=== PATIENT | male | born 1985 | race Caucasian/White ===

== ENCOUNTER 2022-09-20 09:25 | Emergency (ER) | payer OTHER, SELFPAY ==
[2022-09-20 09:28] VITALS: BP 186/112; PULSE 83; RESP 16; TEMP 36.4; O2SAT 100
--- NOTE | 2022-09-20 09:34 | ED.GENADULT ---
HPI - General Adult General Chief complaint: Wound/Laceration <Jose Encarnacion MD - Last Filed: 09/20/22 18:14> Stated complaint: hand lac <Jose Encarnacion MD - Last Filed: 09/20/22 18:14> Time Seen by Provider: 09/20/22 09:28 <Jose Encarnacion MD - Last Filed: 09/20/22 18:14> History of Present Illness HPI narrative: 27-year-old male presented to the emergency department for evaluation of an injury to his left hand. Patient reports last night at approximately 4 PM he was cutting deer sausage with a knife and inadvertently cut his left hand. Patient states he did attempt to put Steri-Strips on the wound but when he was at work today it continued to bleed. Patient reports that his tetanus is up-to-date. Patient denies any associate numbness or weakness. <Jose Encarnacion MD - Last Filed: 09/20/22 18:14> Related Data Allergies/adverse reactions: Allergies Allergy/AdvReac Type Severity Reaction Status Date / Time No Known Allergies Allergy Unverified 05/23/13 12:30 <Jose Encarnacion MD - Last Filed: 09/20/22 18:14> Review of Systems Review of Systems: All systems reviewed & are unremarkable except as noted in HPI and below <Jose Encarnacion MD - Last Filed: 09/20/22 18:14> Exam Narrative: APPEARANCE: Well appearing, no pain, no distress, well-nourished. HEAD: normocephalic, atraumatic. EYES: PERRLA/EOMI, conjunctivae clear. NECK: Supple. No adenopathy, no masses. RESPIRATORY: Airway patent, respirations nonlabored. Clear to auscultation bilaterally, no rales, rhonchi, wheezing. CARDIOVASCULAR: Regular rate and rhythm without murmurs rubs or gallops. ABDOMINAL: Soft, nontender, nondistended, normal bowel sounds MUSCULOSKELETAL: Moves all extremities. Strength/ROM intact, No edema, No calf tenderness. NEURO: Alert. Cranial nerves II through XII intact. SKIN: Laceration to left lateral palm. Bleeding resolved upon arrival. <Jose Encarnacion MD - Last Filed: 09/20/22 18:14> Course Course Emergency Course: 37-year-old male with left hand laceration. Patient reports his tetanus is intact. Laceration was repaired as described in the procedure note. Patient was updated on wound care. All questions were addressed and patient was well-appearing at time of discharge from the emergency department <Jose Encarnacion MD - Last Filed: 09/20/22 18:14> Vital Signs Vital signs: Vital Signs Temperature 97.6 F 09/20/22 09:28 Pulse Rate 83 09/20/22 09:28 Respiratory Rate 16 09/20/22 09:28 Blood Pressure 186/112 H 09/20/22 09:28 Pulse Oximetry 100 09/20/22 09:28 Oxygen Delivery Room Air 09/20/22 09:28 Temperature 97.6 F 09/20/22 09:28 Pulse Rate 83 09/20/22 09:28 Respiratory Rate 16 09/20/22 09:28 Blood Pressure 186/112 H 09/20/22 09:28 Pulse Oximetry 100 09/20/22 09:28 Oxygen Delivery Room Air 09/20/22 09:28 <Jose Encarnacion MD - Last Filed: 09/20/22 18:14> Vital Signs Temperature 97.6 F 09/20/22 09:28 Pulse Rate 83 09/20/22 09:28 Respiratory Rate 16 09/20/22 09:28 Blood Pressure 186/112 H 09/20/22 09:28 Pulse Oximetry 100 09/20/22 09:28 Oxygen Delivery Room Air 09/20/22 09:28 Temperature 97.6 F 09/20/22 09:28 Pulse Rate 83 09/20/22 09:28 Respiratory Rate 16 09/20/22 09:28 Blood Pressure 186/112 H 09/20/22 09:28 Pulse Oximetry 100 09/20/22 09:28 Oxygen Delivery Room Air 09/20/22 09:28 <Melissa Layne PA-C - Last Filed: 09/20/22 09:52> Procedures Laceration Laceration 1: Date: 09/20/22 <Melissa Layne PA-C - Last Filed: 09/20/22 09:52> Time: 09:40 <Melissa Layne PA-C - Last Filed: 09/20/22 09:52> Site: hand <Melissa Layne PA-C - Last Filed: 09/20/22 09:52> Side (If applicable): left <SOCRATES Crowley Last Filed: 09/20/22 09:52> Size (cm): 1.5 <MATT Crowley
== END 2022-09-20 10:17 | disposition home or self-care (01) ==
PROVIDERS: Emergency Provider Emergency Medicine; PCP Nurse Practitioner Adult Health
DX: S61.412A Laceration without foreign body of left hand, initial encounter (principal); W26.0XXA Contact with knife, initial encounter; Y93.G1 Activity, food preparation and clean up
CPT/HCPCS: 12001; 99282

== ENCOUNTER 2023-02-05 00:34 | Emergency (ER) | payer OTHER, SELFPAY ==
[2023-02-05] VITALS (10 sets, daily range): BP systolic 122–124; BP diastolic 74–91; PULSE 82–93; RESP 13–25; TEMP 36.6; O2SAT 97–100
--- NOTE | ~2023-02-05 | CT_ITS ---
EXAMINATION: CT cervical spine wo con DATE: 02/05/2023 01:25 INDICATION: Fall. Head injury. TECHNIQUE: Computed tomography (CT) of the cervical spine was performed without intravenous contrast. Automated exposure control and iterative reconstruction technique were employed. Exam dose: 585.43 mGy-cm total exam DLP. COMPARISON: None FINDINGS: C1 and C2 are normally aligned and the odontoid process is intact. No fracture or dislocati on or locked facet or prevertebral soft tissue swelling. Cervical interspaces are relatively well pre served. Density noted are small mucous retention cysts or polyps and mild mucoperiosteal thickening of the ma xillary sinuses, patchy soft tissue thickening the ethmoid air cells and mild mucoperiosteal thickeni ng of left sphenoid sinus. The mastoid air cells are normally developed and aerated. Middle and inner ear apparatus appear kacie l.. IMPRESSION: No cervical spine fracture or dislocation Reviewed, dictated and finalized at [facility] Reviewed, dictated and finalized at [facility].
--- NOTE | ~2023-02-05 | CT_ITS ---
EXAMINATION: CT brain wo con DATE: 02/05/2023 01:25 INDICATION: Fall. Head injury. TECHNIQUE: Computed tomography (CT) of the head was performed without intravenous contrast. The mA wa s adjusted according to patient size. Iterative reconstruction technique was employed. Exam dose: 68 1.00 mGy-cm total exam DLP. COMPARISON: None FINDINGS: No intracranial mass lesion or hemorrhage or cerebrovascular accident. No midline shift or mass effect. Normal dillon-white matter differentiation. Normal ventricular size. No subdural or epidur al hematoma. Mild soft tissue thickening the ethmoid air cells and left sphenoid sinus. The mastoid air cells and included paranasal sinuses are otherwise unremarkable. No fracture or bone destruction of the cranial vault. IMPRESSION: No skull fracture or acute intracranial finding Reviewed, dictated and finalized at [facility] Reviewed, dictated and finalized at [facility].
[2023-02-05] MEDS: SODIUM CHLORIDE 0.9% IV 1,000 ML 999 ML IV CONT (00:59)
[2023-02-05] MEDS: ONDANSETRON INJ 4 MG/2 ML VIAL IV PUSH (00:59)
[2023-02-05] MEDS: IBUPROFEN 400 MG TABLET 800 MG PO (01:22)
[2023-02-05] MEDS: HYDROcodone/acetaminophen (*CRX) 5-325 MG TABLET 1 TAB PO (02:35)
--- NOTE | 2023-02-05 05:10 | ED.GENADULT ---
HPI - General Adult General Chief complaint: Fall Stated complaint: GLF 2 TO ETOH+ HIT HEAD N/V Time Seen by Provider: 02/05/23 00:45 History of Present Illness HPI narrative: Patient 37-year-old gentleman who presents the emergency department with chief complaint of head injury. The patient reports that he was drinking this evening slipped and fell backwards and struck his head. The patient reports that he had a slight loss of consciousness reports that he has a severe headache afterwards. Patient reports he is also felt nauseated and his family was concerned that he may have a head injury. Related Data Allergies Allergy/AdvReac Type Severity Reaction Status Date / Time No Known Allergies Allergy Unverified 05/23/13 12:30 Review of Systems Review of Systems: A 10 system review of systems was completed on the patient and is negative except for what is stated in the HPI. Nursing and ancillary documentation was reviewed. Exam Narrative: GENERAL: Well-appearing, well-nourished, and in no acute distress. HEAD: Normocephalic, atraumatic. EYES: PERRLA and EOMI. ENT: Nares clear, no rhinorrhea or epistaxis. Mucous membranes moist. NECK: Supple. CHEST: Clear to auscultation. No respiratory distress. HEART: Regular rate and rhythm. No murmur heard. Normal peripheral pulses. ABDOMEN: Soft, nontender, nondistended, normal active bowel sounds. EXTREMITIES: Normal range of motion. No edema. SKIN: Warm, dry, no rash. NEURO: No focal deficits. Alert and oriented x3. PSYCH: Normal mood and affect. Course Vital Signs Vital signs: Vital Signs Temperature 36.6 C 02/05/23 00:32 Pulse Rate 87 02/05/23 00:32 Respiratory Rate 20 02/05/23 00:32 Blood Pressure 122/91 H 02/05/23 00:32 Pulse Oximetry 98 02/05/23 00:32 Oxygen Delivery Room Air 02/05/23 00:32 Temperature 36.6 C 02/05/23 00:32 Pulse Rate 87 02/05/23 02:20 Respiratory Rate 19 02/05/23 02:20 Blood Pressure 122/91 H 02/05/23 00:32 Pulse Oximetry 97 02/05/23 02:20 Oxygen Delivery Room Air 02/05/23 00:32 Medical Decision Making [facility] Narrative Medical decision making narrative: Differential diagnoses intracranial hemorrhage, TBI, cervical spine fracture. CT head showed no acute abnormality CT C-spine showed no evidence of fracture Patient was hydrated given pain control and given antiemetics in the emergency department. Vital Signs Vital Signs: Vital Signs Temperature 36.6 C 02/05/23 00:32 Pulse Rate 87 02/05/23 00:32 Respiratory Rate 20 02/05/23 00:32 Blood Pressure 122/91 H 02/05/23 00:32 Pulse Oximetry 98 02/05/23 00:32 Oxygen Delivery Room Air 02/05/23 00:32 Temperature 36.6 C 02/05/23 00:32 Pulse Rate 87 02/05/23 02:20 Respiratory Rate 19 02/05/23 02:20 Blood Pressure 122/91 H 02/05/23 00:32 Pulse Oximetry 97 02/05/23 02:20 Oxygen Delivery Room Air 02/05/23 00:32 Discharge Plan Discharge Clinical Impression: Ground-level fall, Head injury Patient Disposition: Home, Self-Care Condition: Stable Instructions: Antibiotic Form, Head Injury (ED), Acute Nausea and Vomiting (ED) Follow-up/Referrals: Kaylah Ingram APRN [Primary Care Provider] - Time of Disposition: 05:26
== END 2023-02-05 05:54 | disposition home or self-care (01) ==
PROVIDERS: Emergency Provider Emergency Medicine; PCP Nurse Practitioner Adult Health
DX: S06.9X9A Unspecified intracranial injury with loss of consciousness of unspecified duration, initial encounter (principal); W01.0XXA Fall on same level from slipping, tripping and stumbling without subsequent striking against object, initial encounter
CPT/HCPCS: 70450; 72125; 96361; 96374; 99284; A9270; J2405; J7030

== ENCOUNTER 2024-10-04 12:44 | Emergency (ER) | payer OTHER, SELFPAY ==
--- NOTE | ~2024-10-04 | XR_ITS ---
EXAMINATION: XR lumbar spine 2-3V DATE: 10/04/2024 13:24 INDICATION: Left-sided low back pain. TECHNIQUE: 3 views of lumbar spine were obtained. COMPARISON: None. FINDINGS: Alignment is normal. There is mild chronic anterior wedging of L1 and L2 vertebral bodies. There are Schmorl's nodes at multiple levels. There is mildly decreased disc height at L5-S1. There i s multilevel mild facet joint osteoarthritis. IMPRESSION: 1. Mild lumbar spondylosis. Reviewed, dictated and finalized at location A. IMPRESSION: 1. Mild lumbar spondylosis.
[2024-10-04 12:52] VITALS: BP 126/69; PULSE 65; RESP 18; TEMP 36.7; O2SAT 99
--- NOTE | 2024-10-04 13:16 | ED.BACK ---
HPI - Back Pain/Injury General Chief Complaint: Back Pain/Injury Stated Complaint: Low Back Pain Time Seen by Provider: 10/04/24 12:50 Source: patient and RN notes reviewed Mode of arrival: ambulatory Limitations: no limitations History of Present Illness HPI Narrative: 39-year-old male presents to the [facility] complaining of left lower back pain. He reported approximately 1 week ago he was doing sit-ups when he felt a pull in his left lower back developed pain. 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 he then reports over last weekend he was stepping off a boat when he developed worsening pain to his left lower back into the left buttocks. He described the pain as feeling hot ariana placed to his left thigh / buttocks area. He reports the pain shoots into his left mid thigh. He denies any saddle anesthesia, leg weakness, or any loss of bowel or bladder function. He has tried conservative therapy at home along with Tylenol ibuprofen without relief. Related Data Allergies Allergy/AdvReac Type Severity Reaction Status Date / Time No Known Allergies Allergy Verified 10/04/24 12:57 Review of Systems Review of Systems: CONSTITUTIONAL: Denies fever, chills, or sweats. EYES: Denies visual changes, redness, or discharge. ENT: Denies rhinorrhea, congestion, sore throat, or otalgia. CARDIOVASCULAR: Denies chest pain, palpitations, or edema. RESPIRATORY: Denies cough or dyspnea. GASTROINTESTINAL: Denies abdominal pain, nausea, vomiting, or diarrhea. GENITOURINARY: Denies dysuria or hematuria. SKIN: Denies rash or itching. MUSCULOSKELETAL: Denies joint pain, or myalgia. Positive for back pain NEUROLOGIC: Denies headache, numbness, or weakness. PSYCHIATRIC: Denies anxiety or depression. All other systems reviewed are negative, except as documented in HPI. COUNT INCLUDES THE [facility] Past Medical History Medical History Perspiration excessive Vomiting Sensation, choking BMI greater than 30 Surgical History Surgical History H/O microdiscectomy Family History Family History Father Hypertension Cerebrovascular accident Mother Hypertension Stomach cancer Social History Social History Smoking status: Never smoker Smokeless tobacco user: chewing tobacco Second hand tobacco smoke exposure: No Alcohol intake: current Substance use: never Lack of Transportation: No Lack of Food: Never True Current Housing: I Have Housing Concerned About Future Housing: No Difficulty Paying Gas/Electric Bills: No Difficulty Paying for Meds: No Currently Unemployed: No Education: Bachelor's Degree Difficulty w/ Childcare or Family Care: No Living arrangements: with family Occupation/Education: occupation Gender identity (if verbalized by the patient): Male Spiritual care concerns: No Agree to blood products: Yes Comments At the time of my signature, I reviewed and agree with the nursing past medical, surgical, social, and family history. There is no relevant family history pertinent to the patient complaint. Exam Narrative: GENERAL: This is a well-nourished, well-developed patient, in no apparent distress. HEAD: normocephalic, atraumatic. EYES: Sclera clear/white. Vision is grossly intact. EARS: External ears normal, auditory canals clear and without drainage. Hearing grossly intact. NOSE: External nose normal with no obvious nasal discharge NECK: Neck supple, non-tender without lymphadenopathy, masses or thyromegaly. CARDIOVASCULAR: Regular rate and rhythm without murmurs, gallops, or rubs. RESPIRATORY: Clear to auscultation. Breath sounds equal bilaterally. No wheezes, rales, or rhonchi. GASTROINTESTINAL: Abdomen soft, non-tender, nondistended. No guarding. SKIN: warm, Dry, intact with no suspicious lesions or rash, good texture and turgor. NEURO: awake, alert, and oriented to person, place and time. There were no obvious focal neurologic abnormalities. EXTREMITIES: No joint tenderness, effusion, or edema noted. BACK: Nontender without deformity. No CVA tenderness.No cervical, thoracic, or lumbar pain point tenderness. He is wearing a back brace. Pain is elicited by position change. Course Course Level of Care: Express Care Visit Vital Signs Vital signs: Vital Signs Temperature 98.1 F 10/04/24 12:52 Pulse Rate 65 10/04/24 12:52 Respiratory Rate 18 10/04/24 12:52 Blood Pressure 126/69 10/04/24 12:52 Pulse Oximetry 99 10/04/24 12:52 Oxygen Delivery Room Air 10/04/24 12:52 Temperature 98.1 F 10/04/24 12:52 Pulse Rate 65 10/04/24 12:52 Respiratory Rate 18 10/04/24 12:52 Blood Pressure 126/69 10/04/24 12:52 Pulse Oximetry 99 10/04/24 12:52 Oxygen Delivery Room Air 10/04/24 12:52 reviewed MDM - Back Pain/Injury MDM Narrative Medical decision making narrative: obtained lumbar on patient request to assess lumbar region of the spine. The symptoms are consistent with sciatica. He has no saddle anesthesia, as to the lower extremities, or any loss of bowel or bladder function. Imaging of his back showed mild lumbar spondylosis, no other acute findings. this is consistent with his history of his microdiskectomies. Conservative therapy was discussed, I will give him Robaxin as needed for muscle spasms, and given a steroid pack to help with inflammation. He was advised not to drive, or operate work while taking the Robaxin as it may cause him to be drowsy. Spinal decompression and stretching were discussed. Anticipatory guidance given. ED precautions discussed. Critical Care Time Critical Care Time Critical Care Time: No Discharge Plan Discharge Clinical Impression: Lumbar spondylosis, Sciatica associated with disorder of lumbar spine Patient Disposition: Home, Self-Care Condition: Stable Instructions: Sciatica (ED), Lower Back Exercises (ED) Additional Instructions: Take the steroids as directed. Take the muscle relaxer as directed. Do not drive or operate heavy machine, or work while taking the medication as it can make you drowsy. Use the lidocaine patches as directed. You may take Tylenol or ibuprofen as needed Please follow-up with your primary care provider if pain persist You may try stretching your lower back or doing spinal decompression to help with symptoms. Go to the emergency department if you develop any numbness or tingling to your groin, weakness in your legs, or any loss of bowel or bladder function. Your x-ray of the back showed mild arthritis Patient Language: Albanian Prescriptions: New prednisone 20 mg tablet See Rx Instructions .ROUTE .COMPLEX Qty: 12 0RF Rx Instructions: Takes 3 tablets for 1 day, 2 tablets for 3 days, then 1 tablet for 3 days. lidocaine 5 % adhesive patch,medicated 1 patch topical DAILY Qty: 15 0RF Rx Instructions: leave on most painful area for up to 12 hrs methocarbamol 750 mg tablet 750 mg PO TID PRN (Reason: muscle spasms) Qty: 15 0RF ibuprofen 600 mg tablet 600 mg PO Q6H PRN (Reason: pain) Qty: 30 0RF No Action omeprazole 40 mg capsule,delayed release(DR/EC) 40 mg PO DAILY Qty: 30 2RF Drysol 20 % solution 1 applic topical 2XW Qty: 37.5 0RF tizanidine 4 mg tablet 4 mg PO QHS PRN (Reason: muscle spasticity) Qty: 90 0RF meloxicam 15 mg tablet 15 mg PO DAILY Qty: 60 0RF lisdexamfetamine [Vyvanse] 40 mg capsule 40 mg PO QAM Qty: 30 0RF Follow-up/Referrals: Danielito Bruce MD [Primary Care Provider] - Time of Disposition: 13:49
--- OUTSIDE RECORDS SUMMARY | 2024-10-04 13:27 | XMS_ITS | Clinical Summary ---
Author Organization [facility] Address [address] [place] [address] Care Team Providers Care Management Professional Name Role Phone Mora Arthur MD Primary Care Provider Source Comments [facility],non-owned Affiliates and Associated Physician Practices is amultiple site organization consisting of ambulatory clinics and hospital sitesin [place], [place], [place] and [place]. This disclosure is being madepursuant to the Care Everywhere program and may not contain all information available regarding this patient. Last updated 18.[facility] Allergies No known active allergies Medications * Be aware that medications may not be up to date on this document. Alwaysverify current medications with the patient. Medication Sig Dispensed Refills Start Date End Date Status oxycodone-acetaminophe n (PERCOCET) 5-325 MG tablet Take 1 Tab by mouth every 4 hours as needed for Pain. 30 0 01/30/2009 Active cyclobenzaprine (FLEXERIL) 10 MG tablet Take 1 Tab by mouth 3 times daily as needed for Muscle Spasms. 42 0 01/30/2009 Active Active Problems Problem Noted Date Diagnosed Date Backache 01/30/2009 Social History Tobacco Use Types Packs/Day Years Used Date Smoking Tobacco: Never Assessed Sex and Gender Information Value Date Recorded Sex Assigned at Not on file Gender Identity Not on file Sexual Orientation Not on file Last Filed Vital Signs Vital Sign Reading Time Taken Comments Blood Pressure 114/50 01/30/2009 7:56 PM CDT Pulse 60 01/30/2009 7:56 PM CDT Temperature 36.8 C (98.2 F) 01/30/2009 7:56 PM CDT Respiratory Rate 18 01/30/2009 7:56 PM CDT Oxygen Saturation 100% 01/30/2009 7:56 PM CDT Inhaled Oxygen Concentration - - Weight 90.3 kg (199 lb) 01/30/2009 11:08 AM CDT Height 182.9 cm (6') 01/30/2009 11:08 AM CDT Body Mass Index 26.99 01/30/2009 11:08 AM CDT Plan of Treatment Health Maintenance Due Date Last Done Comments HIV SCREENING 2002 HEPATITIS C SCREENING 07/30/2005 DTAP/TDAP/TD VACCINES (1 - Tdap) 2006 HEPATITIS B VACCINE (1 of 3 - 19+ 3-dose series) 2006 COVID-19 VACCINE (1 - 2023-2 5 season) 2024 INFLUENZA VACCINE (#1) 2024 DEPRESSION SCREENING 07/11/2024 ZOSTER VACCINE (1 of 2) 2037 HIB VACCINE Aged Out No longer eligi ble based on patient's age to complete this topic HPV VACCINE Aged Out No longer eligi ble based on patient's age to complete this topic MENINGOCOCCAL (Group B) VACC INE SHARED DECISION-MAKING Aged Out No longer eligibl e based on patient's age to complete this topic MENINGOCOCCAL GROUPS A/C/Y/W VACCINE Aged Out No longer eligible b ased on patient's age to complete this topic PNEUMOCOCCAL VACCINE Aged Out No long er eligible based on patient's age to complete this topic Care Teams Management Professional Relationship Specialty Start Date End Date Mora Arthur MD [address] [place] [address] [phone] PCP - General 01/31/09
--- OUTSIDE RECORDS SUMMARY | 2024-10-04 13:27 | XMS_ITS | Data Portability ---
Author Organization [place] - [facility] [employer], Main Office Address [address] [place] [address] Assessment No assessment recorded. Plan of Treatment Reminders Order Date Submit Date Provider Last Modified By Organization Details Last Modified Time Details Appointments None recorded. Lab vitamin D, 25-hydroxy, total, serum 2022 023 [email or web address] Not available 3 08:40:00 vitamin B12 + folate, serum or blood 2022 023 [email or web address] Not available 3 08:40:00 CMP, serum or plasma 2022 023 [email or web address] 11 Not available 3 08:39:59 CBC w/ auto diff 2022 023 [email or web address] Not available 3 08:40:00 lipid panel, serum 2022 023 [email or web address] 11 Not available 3 08:40:00 TSH, serum or plasma 2022 023 [email or web address] 11 Not available 3 08:40:00 urinalysis, complete 2022 023 [email or web address] Not available 3 08:40:00 T4, free, serum 2022 023 [email or web address] Not available 3 08:40:00 Referral None recorded. Procedures None recorded. Surgeries None recorded. Imaging None recorded. Medication Orders tizanidine 4 mg tablet 2022 023 [id number], [address] [facility], [place], [place], [id number], 3 12:17:16 Patient TargetsNo targets recorded. Patient InstructionsNo instructions recorded. Reason for Referral None Reported. Problems Name Problem SNOMED Code Status Onset Date Resolution Date Notes Provider Name and Address Organization Details Recorded Time History of lumbar discectom y 98174154655 567464 Active 2020 Not Available [facility] 3 07:31:38 Difficult y coping 60651311 Completed Not Available [facility] 3 07:31:38 Generaliz ed anxiety disorder 42498753 Active 2019 Not Available [facility] 3 07:31:39 Ankle pain 247062654 Completed Not Available [facility] 3 07:31:39 Knee pain Completed Not Available [facility] 3 07:31:39 Contact dermatiti s 68128097 Completed Not Available [facility] 3 07:31:39 Alopecia 06160334 Active Not Available [facility] 3 07:31:39 Sleep apnea 98874804 Active 2020 Not Available [facility] 3 07:31:39 Adult health examinati on Active 2022 RAQUEL Ko [address], [employer], [place], [address] , [employer] 3 12:18:27 At increased risk of nutrition al deficit 612990748 Active 2022 RAQUEL Ko [address], [place], [address] , [facility] 3 12:20:21 Obese 415769425 Active 2022 RAQUEL Ko [address], [place], [address] , [facility] 3 12:40:57 Problem Notes None recorded. Procedures Surgical History Date Name Laterality Status Provider Name and Address Organization Details Recorded Time vasectomy completed Not Available [facility] 0 09/08/2022 07:26:50 Imaging Results None recorded. Procedure Notes None recorded. Medical Equipment None Reported. Allergies No known drug allergies Medications Name Sig Start Date Stop Date Status Note LastModified by Organization Details LastModified Time cyclobenzap rine 10 mg tablet Take 1 tablet twice a day by oral route as needed for 30 days. active Not Available Not Available No t Available amoxicillin 500 mg capsule active Not Available Not Available Not Available clindamycin HCl 300 mg capsule active Not Available Not Available Not Available ibuprofen 800 mg tablet active Not Available Not Available Not Available tizanidine 4 mg tablet TAKE 1 TABLET BY MOUTH EVERY DAY AT BEDTIME active Not Available Not Available No t Available hydrocodone 5 mg-acetamin ophen 325 mg tablet TK 1 TO 2 TS PO BID PRN 09/04 completed Not Available Not Available Not Available prednisone 20 mg tablet 3 tablets daily for three days then 2 tabletsda herberth for three days then 1 tablet daily fr three days Take by oral route. active Not Available Not Available No t Available Wellbutrin SR 150 mg tablet, 12 hr sustained-r elease Take 1 tablet twice a day by oral route for 30 days. 09/04 completed Not Available Not Available Not Available acetaminoph en 300 mg-codeine 30 mg tablet TK 2 TS PO Q 6 H PRN P active Not Available Not Available No t Available Wellbutrin SR 100 mg tablet, 12 hr sustained-r elease Take 1 tablet twice a day by oral route for 30 days. 01/19 completed Not Available Not Available Not Available Kenalog 40 mg/mL suspension for injection Take 1.5 mL by injection route. active Not Available Not Available No t Available Mobic 15 mg tablet Take 1 tablet every day by oral route. active Not Available Not Available No t Available hydrocodone 7.5 mg-acetamin ophen 325 mg tablet TK 1 T PO Q 8 H PRN P active Not Available Not Available No t Available methylpredn isolone 4 mg tablets in a dose pack 09/04 completed Not Available Not Available Not Available ondansetron 4 mg disintegrat ing tablet 09/04 completed Not Available Not Available Not Available sertraline 50 mg tablet TK 1/2 T PO HS FOR 1 WEEK THEN INCREASE TO 1 T D 08/18 completed Not Available Not Available Not Available dicyclomine 10 mg capsule 09/04 completed Not Available Not Available Not Available naproxen 500 mg tablet active Not Available Not Available Not Available chlorhexidi ne gluconate 0.12 % mouthwash active Not Available Not Available No t Available [employer] COVID-19 Ag Self Test kit TEST DIRECTED TODAY 10/29 completed Not Available Not Available Not Available Vitals Date Recorded Oxygen saturation Oxygen saturation in Arterial blood by Pulse oximetry Heart rate Body temperature Body weight Systolic blood pressure Diastolic blood pressure Provider Name and Address Organization Details Last Updated DateTime 2 98 % 98 % 63 /min 98.1 [degF] 038500. 21 g 114 mm[Hg] 78 mm[Hg] Not Available [facility] 3 07:27:48 Date Recorded Body height Body mass index (BMI) Body weight Body temperature Heart rate Oxygen saturation Oxygen saturation in Arterial blood by Pulse oximetry Systolic blood pressure Diastolic blood pressure Provider Name and Address Organization Details Last Updated DateTime 3 182.88 cm 31.5 kg/m2 822913. 43 g 98.6 [degF] 69 /min 96 % 96 % 126 mm[Hg] 82 mm[Hg] Tiny Somers MA [employer] 12:04:35 Social History Question Answer Notes LastModified by Organizat ion Details LastModified Time Tobacco Smoking Status Never Smoker Tiny Somers MA null, [employer] 10/29/2022 12:06:20 What Is Your Level Of Alcohol Consumption? Occasional [email or web address] Information not available 10/29/2022 What Is Your Level Of Caffeine Consumption? 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 Yes Information not available 10/29/2022 Do You Participate In Social Media? Yes [email or web address] Information not available 10/29/2022 Do You Feel Stressed (tense, Restless, Nervous, Or Anxious, Or Unable To Sleep At Night)? [id number] [email or web address] Information not available 10/29/2022 Do You Use Any Illicit Or Recreational Drugs? No [email or web address] Information not available 10/29/2022 Sex: Unknown Functional Status None recorded. Mental Status None recorded. Family History Relationship Description Onset Age of this Age Resolved Age Notes LastModified by Organization Details LastModified Time Father No current problems or disability [id number] Not available 09/08/2022 07:26:51 Mother No current problems or disability [id number] Not available 09/08/2022 07:26:52 Medical History No medical history recorded. Immunizations Vaccine Type Date Status Note Provider Nam e and Address Organization Details Recorded Time Tdap 09/07/2019 completed Not Available [facility] 09/08/2022 07:39:16 Influenza, split virus, quadrivalent, PF 09/07/2019 completed Not Available [facility] 07:39:17 Past Encounters Encounter ID Performer Location Encounter Start Date Encounter Closed Date Diagnosis/Indication Diagnosis SNOMED-CT Code Diagnosis ICD10 Code Diagnosis Note [id number] [facility] Karol flanagan [facility] [place] [address] 04/12/2022 00:00:00 04/12/2022 15:55:35 [id number] RAQUEL Ko [facility] Kenton masha [address] [place] [address] [place] [address] 10/29/2022 11:51:54 10/29/2022 12:24:04 History of lumbar discectomy 8133443161 8053822 Z98.890 Adult heal th examination 655655626 Z00.00 At [facility] ed risk of nutritional deficit 755004423 Z91.89 Obese 909445163 E66.9 Sleep apnea 14778020 G47 .30 mild , no cpap Health Concerns Section Related Observation LastModified by Organization Detai ls LastModified Time None Recorded Concern Status LastModified by Organization Details LastModified Time None Recorded Advance Directives Directive None Recorded Payers Encounter Date Sequence Insurance Name Policy Number Policy Lugo Covered Member ID Lugo Member ID Guarantor Name 10/29/2022 1 [facility] [id number] Baldemar Sanchez [id number] Baldemar Sanchez Notes Date Note Type Note Provider Name and Address Organization Details Recorded Time 10/29/2022 text/html 37 y/o for f/u. Once he was diagnoed with illiotibial band syndrome , treated with physical therapy . he has had back issues once in a year and a half , instead of 3 to 4 times per year . He stays home a week and it resolves . Last xrays 2 years ago specialist in [place] . He can walk but that's the extent of his exercise . Tizanidine helps and helps him sleep . RAQUEL Ko [address] [facility], [facility] [address], [place], [address], [place] [facility] [employer] 10/29/2022 12:48:10
== END 2024-10-04 13:54 | disposition home or self-care (01) ==
PROVIDERS: PCP Family Medicine
DX: M47.816 Spondylosis without myelopathy or radiculopathy, lumbar region (principal); M54.42 Lumbago with sciatica, left side; F17.220 Nicotine dependence, chewing tobacco, uncomplicated
CPT/HCPCS: 72100; 99213; G0463